=== PATIENT | female | born 1990 | race Two or more races ===

== ENCOUNTER 2016-05-15 15:11 | Emergency (ER) | payer BC, OTHER ==
[~2016-05-15] VITALS: Ht 149.9 cm; Wt 41.3 kg
[2016-05-15] MEDS ORDERED: ATIV2INJ2 PO (15:36)
[2016-05-15] MEDS ORDERED: EFFE75CA75 PO (15:36)
[2016-05-15] MEDS ORDERED: FERR325T (15:36)
[2016-05-15] MEDS ORDERED: SODI650T (15:36)
[2016-05-15] MEDS ORDERED: AMIL25TA PO (15:36)
[2016-05-15] MEDS ORDERED: ATEN100T PO (15:36)
[2016-05-15] MEDS ORDERED: TOPA25TA10 PO (15:36)
[2016-05-15] MEDS ORDERED: TORS10TA3 PO (15:36)
[2016-05-15] MEDS ORDERED: SIRO1TAB4 (15:36)
[2016-05-15] MEDS ORDERED: ONDA4TAB6 (15:36)
[2016-05-15] MEDS ORDERED: GABA-283 PO ×2 (15:36)
[2016-05-15] MEDS ORDERED: VITA-122 (15:36)
[2016-05-15] MEDS ORDERED: TACR0.5C3 (15:36)
[2016-05-15] MEDS ORDERED: TACR1CAP3 (15:36)
[2016-05-15] MEDS ORDERED: VITA500T3 (15:36)
[2016-05-15] MEDS ORDERED: PRED25TA PO (15:36)
[2016-05-15] MEDS ORDERED: BUPR150T3 (15:36)
[2016-05-15] MEDS ORDERED: VITA1TAB23 (15:37)
[2016-05-15] MEDS ORDERED: ATOR1TAB19 (15:37)
[2016-05-15] MEDS ORDERED: KETOROLAC 30 MG/ML VIAL (J1885) IV ONE (16:45)
[2016-05-15] MEDS ORDERED: NS 1,000 ML IV ONE (16:45)
[2016-05-15] MEDS ORDERED: ONDANSETRON 4MG/2ML VIAL (J2405) IV ONE (16:45)
[2016-05-15 18:55] LABS: BASO % 0.1 % (0.0-1.0); EOS % 0.2 % (0.0-3.0); LARGE UNSTAINED CELL # 0.1 K/mm3 (0.0-0.4); LARGE UNSTAINED CELL % 1.5 % (0.0-4.0); LYMPH # 1.7 K/mm3 (1.5-6.5); LYMPH % 22.4 % (24.0-44.0); MEAN CORPUSCULAR HEMOGLOBIN 28.3 pg (27.0-33.0); MEAN CORPUSCULAR VOLUME 85.6 fl (80.0-96.0); MONO # 0.4 K/mm3 (0.0-0.8); MONO % 6.2 % (0.0-5.0); NEUTROPHILS # 4.8 K/mm3 (1.8-7.7); NEUTROPHILS % 69.6 % (36.0-66.0); PLATELET COUNT, AUTOMATED 207 k/mm3 (150-450); RED CELL DISTRIBUTION WIDTH 12.3 % (11.5-14.5)
[2016-05-15 19:19] LABS: ALBUMIN 3.2 GM/DL (3.2-5.2); ALKALINE PHOSPHATASE 45 U/L (45-117); ALT/SGPT 22 U/L (12-78); ANION GAP 11 MEQ/L (8-16); AST/SGOT 12 U/L (15-37); BILIRUBIN,DIRECT < 0.1 MG/DL (0.0-0.2); BILIRUBIN,TOTAL 0.3 MG/DL (0.2-1.0); BLOOD UREA NITROGEN 25 MG/DL (7-18); CALCIUM LEVEL 8.7 MG/DL (8.5-10.1); CARBON DIOXIDE LEVEL 19 MEQ/L (21-32); CHLORIDE LEVEL 116 MEQ/L (98-107); CREATININE FOR GFR 1.31 MG/DL (0.55-1.02); GLOMERULAR FILTRATION RATE 53.6 (>60); GLUCOSE, FASTING 90 MG/DL (70-105); POTASSIUM SERUM 3.7 MEQ/L (3.5-5.1); SODIUM LEVEL 146 MEQ/L (136-145); TOTAL PROTEIN 6.1 GM/DL (6.4-8.2)
[2016-05-15] MEDS: HYDROmorphone HCL 1 MG/ML SYRINGE (J1170) IV PRN ×2 (20:13→21:10)
--- NOTE | 2016-05-15 20:40 | REPUSA ---
CT of the abdomen and pelvis without contrast Clinical statement: Pain. Technique: Multiple axial CT images were obtained from the base of the lungs to the floor of the pelv is utilizing 5 mm axial slices without administration of contrast. Coronal and sagittal reconstructio ns were also obtained. No comparison is available. Findings: Chest: The visualized lung bases are clear. Abdomen: The kidneys are normal in size bilaterally. There is no evidence of hydronephrosis or nephro lithiasis. The liver, spleen, pancreas, and adrenal glands are unremarkable. The aorta demonstrates n ormal caliber and contour. There is no abdominal lymphadenopathy or ascites. Pelvis: The bowel is unremarkable, with no obstructive or inflammatory changes. The urinary bladder i s within normal limits. There is no pelvic lymphadenopathy or ascites. The other pelvic structures ap pear unremarkable. Bones: There are no suspicious osseous abnormalities seen. Impression: Unremarkable CT examination of the abdomen and pelvis.
[2016-05-15] MEDS ORDERED: ZOFR4TAB3 PO (21:01)
[2016-05-15 21:30] VITALS: BP 137/88
== END 2016-05-15 21:33 | disposition home or self-care (01) ==
LOC: M ED 17:39
DX: E86.0 Dehydration (principal); Z87.19 Personal history of other diseases of the digestive system; Z94.82 Intestine transplant status; Z79.899 Other long term (current) drug therapy; Z79.52 Long term (current) use of systemic steroids; Z88.8 Allergy status to other drugs, medicaments and biological substances; Z88.5 Allergy status to narcotic agent; Z88.1 Allergy status to other antibiotic agents

== ENCOUNTER → 2017-04-20 | Outpatient (REF) | payer OTHER | LOC: M SFHCLERA 11:24 | DX: J02.9 Acute pharyngitis, unspecified (principal) ==

== ENCOUNTER → 2017-06-05 | Outpatient (REF) | payer OTHER | LOC: M SFHCLERA 11:37 | DX: R50.9 Fever, unspecified (principal) ==